=== PATIENT | female | born 1965 | race Caucasian/White ===

== ENCOUNTER 2018-01-19 11:11 | Inpatient (IN) | payer BC ==
[2018-01-19] VITALS (11 sets, daily range): BP systolic 100–142; BP diastolic 55–74
[~2018-01-19] VITALS: Ht 170.2 cm; Wt 89.4 kg
--- NOTE | 2018-01-19 11:25 | NUR ---
PT COMES TO ED C/O KLEFT FLANK PAIN RADIATING TO PELVIC AREA SINCE YESTERDAY MORNING, WITH NAUSEA. DENIES VOMITTING, DIZZINESS OR SOB. ABD NONTENDER, NO DISTENTION. DR PULLIAM AT BEDSIDE TO AARON
[2018-01-19] MEDS ORDERED: ONDANSETRON 4 MG/2 ML VIAL IVP ONE (11:30)
[2018-01-19] MEDS ORDERED: MORPHINE SULFATE 4 MG/ML SYR IVP ONE (11:30)
[2018-01-19] MEDS ORDERED: NACL 0.9% 1,000 ML IV ONE (11:30)
[2018-01-19 11:57] LABS: BILIRUBIN,URINE NEGATIVE (NEGATIVE); BLOOD, URINE 1+ (NEGATIVE); COLOR,URINE YELLOW (YELLOW); LEUKOCYTE ESTERASE ,URINE TRACE (NEGATIVE); NITRITE, URINE POSITIVE (NEGATIVE); PH,URINE 5.5 (5.0-9.0); UGLUCOSE NEGATIVE (NEGATIVE)
[2018-01-19 11:58] LABS: HEMATOCRIT 44.1 % (36-48); HEMOGLOBIN 14.5 g/dL (12.0-16.0); MEAN CORPUSCULAR HEMOGLOBIN 31 pg (27-31); MEAN CORPUSCULAR HGB CONC 33 g/dL (33-37); PLATELET COUNT (AUTO) 261 K/uL (140-450); RED BLOOD CELL COUNT(AUTO) 4.69 MIL/uL (4.20-5.40); RED CELL DISTRIBUTION WIDTH 14.5 % (11.6-13.7)
[2018-01-19 12:08] LABS: WHITE BLOOD COUNT (AUTO) 31.7 K/uL (4.8-10.8)
[2018-01-19 12:09] LABS: ANION GAP 18.1 (8-16); CARBON DIOXIDE 21.9 mmol/L (21-32); CREATININE 1.8 mg/dL (0.6-1.3)
[2018-01-19 12:11] LABS: LYMPHOCYTES % (MANUAL) 8 % (20-46); MONOCYTES % (MANUAL) 3 % (5-12)
[2018-01-19 12:14] LABS: RBC,URINE 3-10 (FEW) /HPF (0-5)
[2018-01-19 12:16] LABS: APPEARANCE,URINE HAZY (CLEAR)
[2018-01-19 12:17] LABS: ALBUMIN 3.5 g/dL (3.4-5.0); TOTAL BILIRUBIN 0.7 mg/dL (0.0-1.0)
[2018-01-19] MEDS ORDERED: cefTRIAXone 1,000 MG VIAL ONE (12:25)
--- NOTE | 2018-01-19 12:26 | NUR ---
Patient appears to be resting comfortably in bed, reports decreased pain 5/10. Vital Signs within normal limits. Respirations even and unlabored. pending admit
[2018-01-19] MEDS ORDERED: ONDANSETRON 4 MG/2 ML VIAL IVP PRN ×2 (12:45→15:50)
[2018-01-19] MEDS ORDERED: MORPHINE SULFATE 4 MG/ML SYR IVP PRN ×2 (12:45→16:10)
[2018-01-19] MEDS ORDERED: HYDROcodone/APAP 5/325 MG 1 TAB TAB PO PRN (12:45)
[2018-01-19] MEDS ORDERED: ACETAMINOPHEN 325 MG TAB PO PRN (12:45)
[2018-01-19] MEDS: NACL 0.9% 1,000 ML IV SCH ×2 (13:12→16:45)
--- NOTE | 2018-01-19 13:30 | NUR ---
PT ARRIVED ON THE UNIT WITH 2 ER NURSES. PT IS AWAKE AND ORIENTED. INTRODUCED MYSELF AND UPDATED THE BOARDD. PT AMBULATED FROM GURNEY TO BED. GAIT STEADY. PT HAS IV ON L AC 20G, NS INFUSING BOLUS. SKIN INTACT. C/O L ABD AND FLANK PAIN RADIATING ALL THE WAY TO THE RIGHT SIDE. ADMINISTERED TELE MONITOR, BROWN SOCKS, MRSA SCREENING DONE. V/S WITHIN NORMAL RANGE. FAMILY AT BEDSIDE. GOT PT SOME ICE CHIPS FOR DRY MOUTH. EDUCATED PT THAT SHE IS NPO, IN CASE WE NEED TO DO PROCEDURE. WILL CONTINUE TO MONITOR PT.
--- NOTE | 2018-01-19 13:35 | NUR ---
Patient will be admitted to [facility]. Admited to TELE. Will go to room 105A. Belongings list completed. Report to KARL CORDOVA.
--- NOTE | 2018-01-19 14:00 | NUR ---
DR. HITCHCOCK HERE TO ASSESS PT. DISCUSSED WITH PT DIFFERENT OPTIONS. WENT OVER PROCEDURE, PRO AND CON. PT SIGNED CONSENT FORM. WILL CONTINUE TO MONITOR PT.
[2018-01-19 14:38] LABS: CHOL/HDL RATIO 3.1 (1-4.5); FREE T4 (FREE THYROXINE) 1.41 ng/dL (0.76-1.46); THYROID STIMULATING HORMONE 0.11 uIU/mL (0.34-3.74)
--- NOTE | 2018-01-19 15:00 | NUR ---
MIMA, O/R NURSE CAME AND TRANSMISSION ASSEMBLER PT FOR HER PROCEDURE. FAMILY ACCOMPANYING HER TO THE O/R WAITING ROOM. REMOVED ALL JEWELRY AND GAVE TO FAMILY MEMBER. REMOVED ALL CLOTHES AND IN PLACED IN DRAWER. PT IS IN STABLE CONDITION.
[2018-01-19] MEDS ORDERED: PROPOFOL 200 MG/20 ML VIAL IV ONE (15:05)
[2018-01-19] MEDS ORDERED: SEVOFLURANE 250 ML BTL INH ONE (15:05)
[2018-01-19] MEDS ORDERED: ONDANSETRON 4 MG/2 ML VIAL ONE (15:05)
[2018-01-19] MEDS ORDERED: DEXAMETHASONE 4 MG/ML VIAL ONE (15:05)
[2018-01-19] MEDS ORDERED: fentaNYL 0.05 MG/ML VIAL ONE (15:15)
[2018-01-19] MEDS ORDERED: MIDAZOLAM 2 MG/2 ML VIAL ONE (15:15)
[2018-01-19] MEDS ORDERED: NACL 0.9% 1,000 ML IV SCH (15:46)
[2018-01-19] MEDS ORDERED: diphenhydrAMINE 50 MG/ML VIAL IVP PRN (15:50)
[2018-01-19] MEDS ORDERED: MEPERIDINE 25 MG/ML SYR IVP PRN (15:50)
--- NOTE | 2018-01-19 16:40 | NUR ---
RECEIVED REPORT FROM OR NURSE. PER OR NURSE CYSTOSCOPY WITH LFT URETERAL STENT PLACEMENT WAS PERFORMED. FOLLEY WAS PLACED IN THE OR. PT HAD 850ML FLUID OUTPUT. PT WAS GIVEN FENTANYL 100 MCG, DECRON 4 MG AND ZOFRAN 4 MG IN OR. PT AWAKE . DOCTOR TALKING TO PT . FAMILY MEMBER AT BEDSIDE. PT ASKED QUESTIONS ABOUT HER DISEASE PROCESS. VS NOTED 100.4 F, BP 115/61, RR 16, HR 110, O2 93% RA. WILL CONTINUE TO MONITOR PT.
--- NOTE | 2018-01-19 16:40 | NUR ---
PT RETURNED TO THE UNIT FROM PROCEDURE. PT IS AWAKE AND ORIENTED. PT IS THIRSTY. WILL GET SOME JUICE AND ICE. POST OP V/S TO BE DONE. FAMILY AT BEDSIDE. WILL CONTINUE TO MONITOR PT.
--- NOTE | 2018-01-19 16:55 | NUR ---
PT VS RECORDED T 97F, BP 119/74, RR;16, HR 109, O2 93% RA. PT ASKED FOR SPRITE. ORDERED FNS. WILL CONTINUE TO MONITOR PT .
--- NOTE | 2018-01-19 17:48 | NUR ---
PTS FOOD TRAY AT BEDSIDE. PT EATING FOOD. TOLERATING WELL. WILL CONTINUE TO MONITOR.
--- NOTE | 2018-01-19 18:23 | NUR ---
ADMINISTERED 2MG MORPHINE TO PT. PT TOLERATED WELL. PT STABLE AND NO SIGN OF DISTRESS NOTED. FRIEND AT BEDSIDE. ALL SAFETY MEASURE IN PLACE. WILL CONTINUE TO MONITOR PT.
--- NOTE | 2018-01-19 19:11 | NUR ---
ENDORSED PT TO THE FLOOR SURFACER NURSE AT BEDSIDE FOR CONTINUITY OF CARE. PT IS VISITING WITH FAMILY. PT IN STABLE CONDITION.
--- NOTE | 2018-01-19 19:30 | NUR ---
RECEIVED REPORT FROM DAY SHIFT RN, PATIENT RESTING IN BED, AWAKE ALERT ORIENTED X4, NO S/S OF DISTRESS NOTED, RESPIRATION EVEN AND UNLABORED. IV PATENT AND INTACT, INFUSING NS AT 126/ML/HR. WEINTSEIN IN PLACE, DRAINING URINE BY GRAVITY. PLAN OF CARE DISCUSSED, PATIENT VERBALIZED UNDERSTANDING. CALL LIGHT WITHIN REACH, SAFETY MEASURE ENSURED, WILL CONTINUE TO MONITOR.
--- NOTE | 2018-01-19 22:13 | NUR ---
PATIENT IS SLEEPING, RESPIRATION EVEN AND UNLABORED, ON ROOM AIR. CALL LIGHT WITHIN REACH, SAFETY MEASURE ENSURED, WILL CONTINUE TO MONITOR.
--- NOTE | 2018-01-20 00:11 | NUR ---
VITAL SINGS STABLE, DENIES PAIN, RESPIRATION EVEN AND UNLABORED, CALL LIGHT WITHIN REACH, SAFETY MEASURE ENSURED, WILL CONTINUE TO MONITOR.
--- NOTE | 2018-01-20 02:07 | NUR ---
NO CHANGE IN CONDITION, PATIENT IS SLEEPING, RESPIRATION EVEN AND UNLABORED, CALL LIGHT WITHIN REACH, SAFETY MEASURE ENSURED, WILL CONTINUE TO MONITOR.
[2018-01-20 04:00] VITALS: BP 103/59
[2018-01-20] MEDS: NACL 0.9% 1,000 ML IV SCH ×3 (04:26→20:42)
--- NOTE | 2018-01-20 04:30 | NUR ---
VITAL SIGNS STABLE, NO S/S OF DISTRESS NOTED, RESPIRATION EVEN AND UNLABORED, ON ROOM AIR. CALL LIGHT WITHIN REACH, SAFETY MEASURE ENSURED, WILL CONTINUE TO MONITOR.
[2018-01-20 06:07] LABS: HEMATOCRIT 36.8 % (36-48); MEAN CORPUSCULAR HEMOGLOBIN 31 pg (27-31); MEAN CORPUSCULAR HGB CONC 33 g/dL (33-37); MEAN CORPUSCULAR VOLUME 94.2 fL (80-94); PLATELET COUNT (AUTO) 191 K/uL (140-450); RED BLOOD CELL COUNT(AUTO) 3.91 MIL/uL (4.20-5.40); RED CELL DISTRIBUTION WIDTH 14.2 % (11.6-13.7); WHITE BLOOD COUNT (AUTO) 28.9 K/uL (4.8-10.8)
[2018-01-20 06:36] LABS: LYMPHOCYTES % (MANUAL) 2 % (20-46); MONOCYTES % (MANUAL) 4 % (5-12)
[2018-01-20 06:42] LABS: MAGNESIUM 2.3 mg/dL (1.8-2.4)
[2018-01-20 06:43] LABS: ANION GAP 14.5 (8-16); CARBON DIOXIDE 21.4 mmol/L (21-32); CREATININE 1.4 mg/dL (0.6-1.3); POTASSIUM 3.9 mmol/L (3.5-5.1)
[2018-01-20 06:51] LABS: PROTHROMBIN TIME 12.7 secs (10.8-13.4)
--- NOTE | 2018-01-20 07:15 | NUR ---
RECEIVED PATIENT REPORT AT BEDSIDE. PATIENT AWAKE, ALERT AND ORIENTED. NO S/S OF DISTRESS. PATIENT ON ROOM AIR. NO SOB. NO C/O PAIN AT THIS TIME. WEINSTEIN CATHETER IN PLACE DRAINING CLEAR YELLOW URINE. PATIENT ON TELE MONITORING. BED LOWERED WITH CALL LIGHT WITHIN REACH. WILL CONTINUE TO MONITOR
--- NOTE | 2018-01-20 07:16 | NUR ---
ENDORSED PLAN OF CARE TO DAY SHIFT, PATIENT RESTING IN BED, IN STABLE CONDITION.
[2018-01-20 07:43] VITALS: BP 134/76
--- NOTE | 2018-01-20 09:05 | NUR ---
PATIENT HAS BEEN SCREENED AND CATEGORIZED HIGH NUTRITION RISK. PATIENT WILL BE SEEN WITHIN 1-2 DAYS OF ADMISSION. 01/20/18 01/21/[address]
--- NOTE | 2018-01-20 10:35 | NUR ---
PATIENT AMBULATED TO THE SINK TO BRUSH HER TEETH. NO S/S OF DISTRESS NOTED
[2018-01-20 12:00] VITALS: BP 130/70
--- NOTE | 2018-01-20 12:04 | NUR ---
PER [facility], DOOR TO DOOR SELLING AGENT. PER [facility] [place], AUTH FOR 5 DAY STAY, AUTH [id number]. FAX REVIEW TO [phone] PHONE FOR DEPT [phone]
--- NOTE | 2018-01-20 15:01 | NUR ---
PATIENT AWAKE IN BED. NO S/S OF DISTRESS NOTED. FAMILY MEMBER PRESENT AT BEDSIDE
--- NOTE | 2018-01-20 15:05 | NUR ---
01/20/18 RD INITIAL ASSESSMENT COMPLETED PLEASE REFER TO NUTRITION ASSESSMENT UNDER CARE ACTIVITY FOR ESTIMATED NUTRITIONAL NEEDS. 1. CONTINUE CARDIAC TOLERATED 2. RD PROVIDED CARDIAC DIET EDUCATION. 3. RD TO FOLLOW-UP 2-3 DAYS, HIGH RISK DARNELL MCCALL RD
[2018-01-20 16:00] VITALS: BP 125/73
--- NOTE | 2018-01-20 18:45 | NUR ---
TEMP RECHECKED 98.8
--- NOTE | 2018-01-20 19:27 | NUR ---
PATIENT REPORT GIVEN AT BEDSIDE. PATIENT ENDORSED IN STABLE CONDITION
--- NOTE | 2018-01-20 19:28 | NUR ---
PATIENT REPORT RECEIVED FROM MORNING NURSE AT BEDSIDE. PATIENT IS AWAKE, ALERT AND ORIENTED. NO SIGNS AND SYMPTOMS OF DISTRESS NOTED. IV SITE NOTED ON LEFT ARM, IVF INFUSING WELL. NO COMPLAINTS OF PAIN AT THIS TIME. WEINSTEIN CATHETER IN PLACE. PLAN OF CARE DISCUSSED WITH PATIENT. PATIENT VERBALIZED UNDERSTANDING. BED IN LOWEST POSITION, SIDE RAILS UP AND CALL LIGHT WITHIN REACH. WILL CONTINUE TO MONITOR.
--- NOTE | 2018-01-20 23:32 | NUR ---
CHECKED ON PATIENT. PATIENT IS ASLEEP. NO SIGNS AND SYMPTOMS OF DISTRESS NOTED. BREATHING EVEN AND UNLABORED. WILL CONTINUE TO MONITOR.
[2018-01-21] VITALS: BP 124/72
--- NOTE | 2018-01-21 02:49 | NUR ---
CHECKED ON PATIENT. PATIENT IS ASLEEP. NO SIGNS AND SYMPTOMS OF DISTRESS NOTED. BREATHING EVEN AND UNLABORED. WILL CONTINUE TO MONITOR.
[2018-01-21] MEDS: NACL 0.9% 1,000 ML IV SCH ×2 (04:38→12:24)
[2018-01-21 07:04] LABS: BASOPHILS # (AUTO) 0.1 K/uL (0.00-0.22); BASOPHILS % (AUTO) 0.4 % (0.0-2.0); EOSINOPHILS # (AUTO) 0.2 K/uL (0-0.4); EOSINOPHILS % (AUTO) 1.2 % (0.0-4.0); HEMATOCRIT 37.3 % (36-48); HEMOGLOBIN 12.5 g/dL (12.0-16.0); LYMPHOCYTES # (AUTO) 1.4 K/uL (2.5-16.5); MEAN CORPUSCULAR HEMOGLOBIN 31 pg (27-31); MEAN CORPUSCULAR HGB CONC 33 g/dL (33-37); MONOCYTES # (AUTO) 0.8 K/uL (0.8-1.0); MONOCYTES % (AUTO) 5.5 % (1.7-9.3); NEUTROPHILS # (AUTO) 12.8 K/uL (1.8-7.7); NEUTROPHILS % (AUTO) 83.9 % (42.2-75.2); PLATELET COUNT (AUTO) 218 K/uL (140-450); RED BLOOD CELL COUNT(AUTO) 3.97 MIL/uL (4.20-5.40); RED CELL DISTRIBUTION WIDTH 14.4 % (11.6-13.7); WHITE BLOOD COUNT (AUTO) 15.3 K/uL (4.8-10.8)
[2018-01-21 07:11] LABS: ANION GAP 14.4 (8-16); CARBON DIOXIDE 22.3 mmol/L (21-32); POTASSIUM 3.7 mmol/L (3.5-5.1)
--- NOTE | 2018-01-21 07:40 | NUR ---
PATIENT REPORT GIVEN TO MORNING NURSE AT BEDSIDE. PATIENT IS IN STABLE CONDITION
--- NOTE | 2018-01-21 07:45 | NUR ---
RECEIVED REPORT FROM LAND SURVEY TECHNICIAN NURSE ABOUT THE PT. PT IS AWAKE AND LYING ON THE BED WITH AN IV LINE AT LEFT AC G.20 NS AT 126ML/HR. NO SIGN OF DISTRESS NOTED. CALL LIOGHT WITHIN REACH. WILL MONITOR.
--- NOTE | 2018-01-21 07:50 | NUR ---
PT IS AWAKE LYING ON THE BED WITH FAMILY MEMBER ON THE BEDSIDE. VITAL SIGNS TAKEN, NURSING CARE PLAN DISCUSSED AND IV LINE WAS HOOKED UP, INTACT. NO SIGN OF DISTRESS NOTED. CALL LIGHT WITHIN REACH. WILL MONITOR.
[2018-01-21 08:00] VITALS: BP 113/77
--- NOTE | 2018-01-21 09:46 | NUR ---
PT IS ASLEEP LYING ON THE BED, RESPIRATION IS EVEN AND NO SIGN OF DISTRESS NOTED. CALL LIGHT WITHIN REACH AND IV LINE IS INFUSING WELL. WILL CONTINUE TO MONITOR.
--- NOTE | 2018-01-21 11:09 | NUR ---
PT IS AWAKE LYING ON THE BED, PATENCY OF IV LINE WAS CHECKED AND PT WAS MADE COMFORTABLE ON THE BED. PT ASKED FOR ICE CHIPS AND REQUEST DONE. NO SIGN OF DISTRESS NOTED. CALL LIGHT WITHIN REACH. WILL CONTINUE TO MONITOR.
--- NOTE | 2018-01-21 14:43 | NUR ---
FAXED CONCURRENT REVIEW TO [facility] [place] [phone] PHONE [phone]
[2018-01-21 16:00] VITALS: BP 145/77
[2018-01-21] MEDS ORDERED: LACT10CA1 PO (16:35)
[2018-01-21] MEDS ORDERED: LEVO750T2 PO (16:35)
--- NOTE | 2018-01-21 17:30 | NUR ---
PT DISCHARGED PER MD ORDER. DISCHARGE INSTRUCTION AND MEDS TEACHING GIVEN. PT VERBALIZED UNDERSTANDING. PT DENIES ANY PAIN, NAUSEA, VOMITING. PT URINATED AFTER WEINSTEIN REMOVAL. MADE PT AWARE THAT SHE NEEDS TO FOLLOW UP WITH HER PCP WITHIN 5 DAY OF DISCHARGE AND FOLLOW UP WITH DR HITCHCOCK. PROVIDED PT WITH CT SCAN REPORT AND STENT PLACEMENT REPORT. IV DC'D, CATH INTACT, PRESSURE APPLIED. WRIST BAND REMOVED. WALKED PT TO LOBBY.
== END 2018-01-21 17:30 | disposition home or self-care (01) | DRG 871 ==
LOC: MED 11:11 → MTU 12:55
PROVIDERS: ADMIT Family Medicine; ATTEND Family Medicine
PROC: 0T778DZ Dilation of Left Ureter with Intraluminal Device, Via Natural or Artificial Opening Endoscopic (ICD-10-PCS; principal; 2018-01-19 15:00)
DX: A41.9 Sepsis, unspecified organism (principal); N17.0 Acute kidney failure with tubular necrosis; N13.6 Pyonephrosis; I10 Essential (primary) hypertension; K57.90 Diverticulosis of intestine, part unspecified, without perforation or abscess without bleeding; N83.202 Unspecified ovarian cyst, left side; F17.210 Nicotine dependence, cigarettes, uncomplicated; E03.9 Hypothyroidism, unspecified; Z88.0 Allergy status to penicillin; Z87.442 Personal history of urinary calculi
CPT/HCPCS: 36415; 71045; 77003; 80048; 80053; 81001; 81025; 82150; 83036; 83690; 83735; 83880; 84100; 84439; 84443; 84703; 85025; 85610; 85730; 87040; 87081; 87086; 87186; 93005; 96365; 96375; 99285; C1758; C1769; C2617; J0696; J1100; J2250; J2270; J2405; J2704; J3010; J7030; J7060; Q0092